=== PATIENT | female | born 1965 | race Hispanic/Latino ===

== ENCOUNTER 2018-06-28 08:10 | Emergency (ER) | payer OTHER ==
[2018-06-28 08:17] VITALS: BMI 26.2
[2018-06-28 08:19] VITALS: O2SAT 98
[2018-06-28 09:32] LABS: BASO # 0.1 K/uL (0.0-0.2); BASO % 0.9 % (0.0-2.0); EOS # 0.1 K/uL (0.0-0.7); EOS % 1.8 % (0.0-4.0); HEMOGLOBIN 15.4 g/dL (12.0-16.0); LYMPH # 2.1 K/uL (1.0-4.3); MEAN CELL VOLUME 96.8 fl (81.0-99.0); MEAN CORPUSCULAR HEMOGLOBIN 32.9 pg (27.0-31.0); MEAN PLATELET VOLUME 8.6 fl (7.2-11.7); MONO # 0.9 K/uL (0.0-0.8); MONO % 11.2 % (0.0-10.0); NEUT # 4.7 K/uL (1.8-7.0); NEUT % 59.1 % (50.0-75.0); NRBC % 0.1 % (0.0-0.0); RBC 4.67 Mil/uL (3.80-5.20); RED CELL DISTRIBUTION WIDTH 13.2 % (11.5-14.5); WHITE BLOOD COUNT 7.9 K/uL (4.8-10.8)
[2018-06-28 09:39] LABS: ALB/GLOB RATIO 1.5 (1.0-2.1); ALBUMIN 4.7 g/dL (3.5-5.0); ALT/SGPT 40 U/L (9-52); AST/SGOT 38 U/L (14-36); BLOOD UREA NITROGEN 18 mg/dl (7-17); CALCIUM 9.5 mg/dL (8.4-10.2); GFR AFRICAN-AMERICAN > 60; GFR NON-AFRICAN AMERICAN > 60
--- NOTE | 2018-06-28 09:59 | RAD ---
Date of service: 06/28/2018 HISTORY: left sided pleuritic pain COMPARISON: No prior. TECHNIQUE: Chest PA and lateral FINDINGS: LUNGS: No active pulmonary disease. PLEURA: No significant pleural effusion identified. No pneumothorax apparent. CARDIOVASCULAR: Normal. OSSEOUS STRUCTURES: No significant abnormalities. VISUALIZED UPPER ABDOMEN: Normal. OTHER FINDINGS: None. IMPRESSION: No acute cardiopulmonary disease appreciated.
--- NOTE | 2018-06-28 10:36 | ED PDOC ---
HPI: Chest Pain Time Seen by Provider: 06/28/18 09:06 Chief Complaint (Nursing): Chest Pain Chief Complaint (Provider): Chest Pain History Per: Patient History/Exam Limitations: no limitations Onset/Duration Of Symptoms: Days Current Symptoms Are (Timing): Still Present Context: Travel Quality: Sharp Additional Complaint(s): 52 year old female with a past medical history of cardiac arrhythmia and cholesterol presents to the ED for an evaluation of chest pain onset today morning. Reports she felt a sharp pain on the left side and had difficulty breathing in the morning. She took Aleve, Metoprolol and Lipotrol without any relief. Patient states she went to the city yesterday and walked a lot so she felt sore last night. Denies calf pain, swelling, sick contacts, fever or cough. PMD: Cuco Gonzalez Past Medical History Reviewed: Historical Data, Nursing Documentation, Vital Signs Vital Signs: Last Vital Signs Temp 97.9 F 06/28/18 11:01 Pulse 77 06/28/18 11:01 Resp 18 06/28/18 11:01 BP 127/62 06/28/18 11:01 Pulse Ox 98 06/28/18 11:03 - Medical History PMH: Cardia Arrhythmia, Hyperlipidemia Denies: Kidney Stones, Chronic Kidney Disease - Family History Family History: States: No Known Family Hx, Other Other Family History: father has heart disease - Social History Current smoker - smoking cessation education provided: No Alcohol: None Drugs: Denies - Immunization History Hx Tetanus Toxoid Vaccination: No Hx Influenza Vaccination: No Hx Pneumococcal Vaccination: No - Home Medications Home Medications: Ambulatory Orders Medication Instructions Recorded Ketorolac Tromethamine [Toradol] 10 mg PO Q6H PRN #19 tab 06/28/18 - Allergies Allergies/Adverse Reactions: Allergies Allergy/AdvReac Type Severity Reaction Status Date / Time Penicillins Allergy Mild RASH Verified 06/28/18 08:30 Review of Systems ROS Statement: Except As Marked, All Systems Reviewed And Found Negative Constitutional: Negative for: Fever Cardiovascular: Positive for: Chest Pain Respiratory: Positive for: Shortness of Breath. Negative for: Cough Musculoskeletal: Negative for: Leg Pain Physical Exam - Reviewed Nursing Documentation Reviewed: Yes Vital Signs Reviewed: Yes - Physical Exam Appears: Positive for: Well, Non-toxic, No Acute Distress Head Exam: Positive for: ATRAUMATIC, NORMAL INSPECTION, NORMOCEPHALIC Skin: Positive for: Normal Color, Warm, Dry Eye Exam: Positive for: EOMI, Normal appearance, PERRL ENT: Positive for: Normal ENT Inspection Neck: Positive for: Normal, Painless ROM, Supple. Negative for: Decreased ROM Cardiovascular/Chest: Positive for: Regular Rate, Rhythm. Negative for: Murmur Respiratory: Positive for: Normal Breath Sounds. Negative for: Decreased Breath Sounds, Wheezing, Respiratory Distress Gastrointestinal/Abdominal: Positive for: Normal Exam, Bowel Sounds, Soft. Negative for: Tenderness, Guarding, Rebound Back: Positive for: Normal Inspection. Negative for: L CVA Tenderness, R CVA Tenderness Extremity: Positive for: Normal ROM. Negative for: Tenderness, Pedal Edema, Deformity Neurologic/Psych: Positive for: Alert, Oriented (x3) - Laboratory Results Result Diagrams: 06/28/18 09:15 06/28/18 09:15 - ECG O2 Sat by Pulse Oximetry: 98 (RA) Pulse Ox Interpretation: Normal Medical Decision Making Medical Decision Making: Time: 906 Initial Impression: chest pain Initial Plan: --EKG --Creatine Phosphokinase --Troponin I --CMP --D Dime [COAG] --CBC w/ Differential --ESR [Erythrocyte sedimentation rate] --Chest Two Views [RAD] --Toradol 30mg --Retirement Actuary --IV Insertion --Reevaluation Time: 957 Chest PA and lateral FINDINGS: LUNGS: No active pulmonary disease. PLEURA: No significant pleural effusion identified. No pneumothorax apparent. CARDIOVASCULAR: Normal. OSSEOUS STRUCTURES: No significant abnormalities. VISUALIZED UPPER ABDOMEN: Normal. OTHER FINDINGS: None. IMPRESSION: No acute cardiopulmonary disease appreciated. Clinical Impression: chest pain Upon provider evaluation patient is medically stable, and requires no further treatment in the ED at this time. Patient will be discharged with Toradol 10mg for pain. Counseling was provided and all questions were answered regarding diagnosis and need for follow up with PMD. There is agreement to discharge plan. Return if symptoms persist or worsen. Scribe Attestation: Documented by Rufino Taet, acting as a scribe for Emelia Ahumada MD Provider Scribe Attestation: All medical record entries made by the Scribe were at my direction and personally dictated by me. I have reviewed the chart and agree that the record accurately reflects my personal performance of the history, physical exam, medical decision making, and the department course for this patient. I have also personally directed, reviewed, and agree with the discharge instructions and disposition. Disposition - Clinical Impression Clinical Impression: Chest pain in adult - Disposition Referrals: Deon Hassan Bates [Outside] Disposition Time: 11:10 Condition: STABLE Additional Instructions: Please followup with your personal physician and specialist if symptoms do not improve or return to the ER if they worsen. Prescriptions: Ketorolac Tromethamine [Toradol] 10 mg PO Q6H PRN #19 tab PRN Reason: Pain, Moderate (4-7) Instructions: Chest Pain That Is Not Caused by the Heart (DC) Forms: Deon Hassan ([place]), [facility] ED School/Work Excuse - POA Present On Arrival: None
[2018-06-28 11:03] VITALS: BP 127/62; PULSE 77; RESP 18; TEMP 97.9
--- NOTE | 2018-06-28 11:54 | CARD ---
APPROVED REPORT Date of service: 06/28/2018 EKG Measurement Heart [id number] <Conclusion> Sinus bradycardia Borderline ECG
== END 2018-06-28 11:30 | disposition home or self-care (01) ==
LOC: H.ER 08:10
DX: R07.89 Other chest pain (principal); E78.5 Hyperlipidemia, unspecified; Z88.0 Allergy status to penicillin
CPT/HCPCS: 71046; 80053; 82550; 84484; 85025; 85378; 85651; 93005; 96374; 99285; J1885